=== PATIENT | male | born 1970 ===

== ENCOUNTER 2021-10-02 08:00 | Outpatient (CLI) | payer BC ==
--- NOTE | 2021-10-02 14:23 | XRAY Report ---
PROCEDURE: Finger(s) RT INDICATIONS: DOG BITE 5TH DIGIT RIGHT HAND TECHNIQUE: AP hand, 3 views of the with finger(s) acquired. COMPARISON: None FINDINGS: Bones: Transverse oblique fracture through the base of the fifth distal phalanx noted with volar disp lacement and angulation of the distal fracture fragment. Soft tissues: No suspicious soft tissue calcifications. IMPRESSION: Angulated and displaced fracture, base of the fifth distal phalanx Reviewed by: Dennis Kaur MD on 10/02/2021 1:22 PM SHEA Approved by: Dennis Kaur MD on 10/02/2021 1:22 PM SHEA Station ID: [id number]
== END 2021-10-02 23:59 | disposition home or self-care (01) ==
LOC: DI.S 08:00
PROVIDERS: ATTEND Physician Assistant Medical
DX: S62.616A Displaced fracture of proximal phalanx of right little finger, initial encounter for closed fracture (principal)

== ENCOUNTER 2022-10-10 00:05 | Day surgery (SDC) | payer BC ==
--- OUTSIDE RECORDS SUMMARY | 2022-10-10 00:13 | EXTERNAL MEDICAL SUMMARY RPT | Continuity of Care Document ---
:1970 Author Organization [facility] Address [address] [place] [address] Phone Care Team Providers Name Role Phone Unavailable Unavailable Unavailable Horacio Lane Md Unavailable Unavailable Allergies No information. Encounters No information. Functional Status No information. Immunizations No information. Medications date description facility 2022-10-06 00:00 methocarbamol [facility] Problems date description facility 2022-10-06 00:00 Backache [facility] [place] 2022-10-06 00:00 Strain of thoracic region [facility] [place] 2022-10-06 00:00 Backache, unspecified [facility] [place] 2022-10-06 00:00 Other dorsalgia [facility] [place] 2022-10-06 00:00 Strain of muscle and tendon of [facility] & back wall of thorax, initial [facility] encounter Procedures date description facility 2022-10-06 00:00 Visit Code Hold [facility] 2022-10-06 00:00 POC URINALYSIS DIP [facility] Results/Labs test date author facility value unit interpret ation Result panel 1 (unknown) (no date) (unknown) [facility] (no value) (units ([facility] nown) Clinic [facility] Result panel 2 (unknown) (no date) (unknown) [facility] (no value) (units ([facility] nown) Clinic [facility] Result panel 3 (unknown) (no date) (unknown) [facility] (no value) (units ([facility] nown) Clinic [facility] Result panel 4 (unknown) (no date) (unknown) [facility] (no value) (units ([facility] nown) Clinic [facility] Result panel 5 (unknown) (no date) (unknown) [facility] (no value) (units ([facility] nown) Clinic [facility] Result panel 6 (unknown) (no date) (unknown) [facility] (no value) (units ([facility] nown) Clinic [facility] Result panel 7 (unknown) (no date) (unknown) [facility] (no value) (units ([facility] nown) Clinic [facility] Result panel 8 (unknown) (no date) (unknown) [facility] (no value) (units ([facility] nown) Clinic [facility] Result panel 9 (unknown) (no date) (unknown) [facility] (no value) (units ([facility] nown) Clinic [facility] Result panel 10 (unknown) (no date) (unknown) [facility] (no value) (units ([facility] nown) Clinic [facility] Result panel 11 (unknown) (no date) (unknown) [facility] (no value) (units ([facility] nown) Clinic [facility] Result panel 12 (unknown) (no date) (unknown) Walk[facility] (no value) (units ([facility] nown) Clinic [facility] Result panel 13 (unknown) (no date) (unknown) [facility] (no value) (units ([facility] nown) Clinic [facility] unknown[facility] Result panel 14 (unknown) (no date) (unknown) [facility] (no value) (units ([facility] nown) Clinic [facility] unknown[facility] Result panel 15 (unknown) (no date) (unknown) [facility] (no value) (units ([facility] nown) Clinic [facility] unknown[facility] Result panel 16 (unknown) (no date) (unknown) [facility] (no value) (units ([facility] nown) Clinic [facility] unknown[facility] Result panel 17 (unknown) (no date) (unknown) [facility] (no value) (units ([facility] nown) Clinic [facility] unknown[facility] Result panel 18 (unknown) (no date) (unknown) [facility] (no value) (units ([facility] nown) Clinic [facility] unknown[facility] Result panel 19 (unknown) (no (unknown) [facility] (no (units ( unknown) date) [facility] Result panel 20 (unknown) (no date) (unknown) [facility] (no value) (units ([facility] nown) Clinic [facility] unknown[facility] Result panel 21 (unknown) (no date) (unknown) Walk-In (no value) (units ([facility] nown) Clinic Primary unknown[facility] Result panel 22 (unknown) (no date) (unknown) Walk-In (no value) (units ([facility] nown) Clinic Primary unknown[facility] Result panel 23 (unknown) (no date) (unknown) Walk-In (no value) (units ([facility] nown) Clinic Primary unknown[facility] Result panel 24 (unknown) (no date) (unknown) Walk-In (no value) (units ([facility] nown) Clinic Primary unknown[facility] Social History date description facility 2022-10-06 00:00 Never smoker [facility] Vital Signs date measurement value units 2022-10-06 00:00 BMI 30.96 kg/m2 2022-10-06 00:00 BP_diastolic 84 mmHg 2022-10-06 00:00 BP_systolic 142 mmHg 2022-10-06 00:00 heart_rate 83 /min 2022-10-06 00:00 height_metric 177.8 cm 2022-10-06 00:00 height_standard 70 in 2022-10-06 00:00 respiration_rate 16 /min 2022-10-06 00:00 temperature_metric 37 C 2022-10-06 00:00 temperature_standard 98.6 F 2022-10-06 00:00 weight_metric 97.52 kg 2022-10-06 00:00 weight_standard 215 lb
[2022-10-10] MEDS ORDERED: KETOROLAC 15 MG/ML VIAL IVP STA ×2 (00:28→04:02)
--- NOTE | 2022-10-10 00:28 | ED Physician Documentation ---
History of Present Illness - Stated complaint Stated Complaint: RT ABD/BACK PX/VOMITING - Chief complaint Chief Complaint: Abd Pain - History obtained from History obtained from: Patient - Additonal information Additional information: 51-year-old man, previously healthy, presents with right upper quadrant pain radiating to the back for the past 5 days, waxing and waning in severity, associated with nonbloody nonbilious nausea and vomiting. Pain is cramping in quality and associated with decreased appetite. Patient denies fever or diarrhea but does state that he has been getting the chills. denies cough, soa. PD PAST MEDICAL HISTORY - Present Medications Home Medications: Ambulatory Orders Medication Instructions Recorded Confirmed Aminida 500 mcg PO DAILY 10/10/22 Beyote 500 mg PO DAILY 10/10/22 Levothyroxine Sodium 125 mcg PO DAILY 10/10/22 10/10/22 [Levothyroxine] - Allergies Allergies/Adverse Reactions: Allergies Allergy/AdvReac Type Severity Reaction Status Date / Time codeine Allergy Itching Verified 10/10/22 00:23 PD ED PE NORMAL - Vitals Vital signs reviewed: Yes - General General: Alert and oriented X 3, No acute distress, Well developed/nourished - HEENT HEENT: Atraumatic, PERRL, EOMI - Neck Neck: Supple, no meningeal sign - Cardiac Cardiac: RRR - Respiratory Respiratory: No respiratory distress, Clear bilaterally - Abdomen Abdomen: Other (RUQ ttp. diffuse discomfort to palpation) Results - Vitals Vitals: Vital Signs - 24 hr 10/10/22 10/10/22 10/10/22 00:05 00:19 02:35 Temperature 36.7 C 99.2 C H Heart Rate 80 73 78 Respiratory 20 18 21 Rate Blood Pressure 144/85 H 143/81 H 124/75 O2 Saturation 98 99 97 10/10/22 10/10/22 10/10/22 03:10 03:30 04:02 Temperature Heart Rate 76 79 81 Respiratory 26 H 18 12 Rate Blood Pressure 112/64 95/58 L 123/72 O2 Saturation 97 95 100 10/10/22 10/10/22 05:20 05:58 Temperature 37.7 C Heart Rate 85 86 Respiratory 16 22 Rate Blood Pressure 119/64 118/68 O2 Saturation 96 95 Oxygen O2 Source Room air - Labs Labs: Laboratory Tests 10/10/22 10/10/22 10/10/22 00:16 00:23 00:23 WBC 15.2 H RBC 5.19 Hgb 14.8 Hct 44.1 MCV 85.0 MCH 28.5 MCHC 33.6 RDW 12.3 Plt Count 288 MPV 9.9 Neut # (Auto) 12.7 H Lymph # (Auto) 1.1 L [place] # (Auto) 1.1 H Eos # (Auto) 0.2 Baso # (Auto) 0.1 Absolute Nucleated RBC 0.00 Nucleated RBC % 0.0 Sodium 138 Potassium 2.8 L Chloride 97 L Carbon Dioxide 28 Anion Gap 13.0 BUN 19 Creatinine 1.0 Estimated GFR (MDRD) 78 L Glucose 149 H Calcium 8.5 Total Bilirubin 0.6 AST 35 ALT 40 Alkaline Phosphatase 143 H Total Protein 7.8 Albumin 3.2 Globulin 4.6 H Albumin/Globulin Ratio 0.7 L Lipase 43 Urine Color YELLOW Urine Clarity CLEAR Urine pH 6.0 Ur Specific [place] 1.015 Urine Protein 100 H Urine Glucose (UA) NEGATIVE Urine Ketones NEGATIVE Urine Occult Blood SMALL H Urine Nitrite NEGATIVE Urine Bilirubin NEGATIVE Urine Urobilinogen 2 H Ur Leukocyte Esterase NEGATIVE Urine RBC 0-5 Urine WBC 0-3 Ur Squamous Epith Cells FEW Squamous Urine Bacteria Rare Ur Microscopic Review INDICATED Urine Culture Comments NOT INDICATED SARS-CoV-2 (PCR) 10/10/22 02:32 WBC RBC Hgb Hct MCV MCH MCHC RDW Plt Count MPV Neut # (Auto) Lymph # (Auto) [place] # (Auto) Eos # (Auto) Baso # (Auto) Absolute Nucleated RBC Nucleated RBC % Sodium Potassium Chloride Carbon Dioxide Anion Gap BUN Creatinine Estimated GFR (MDRD) Glucose Calcium Total Bilirubin AST ALT Alkaline Phosphatase Total Protein Albumin Globulin Albumin/Globulin Ratio Lipase Urine Color Urine Clarity Urine pH Ur Specific [place] Urine Protein Urine Glucose (UA) Urine Ketones Urine Occult Blood Urine Nitrite Urine Bilirubin Urine Urobilinogen Ur Leukocyte Esterase Urine RBC Urine WBC Ur Squamous Epith Cells Urine Bacteria Ur Microscopic Review Urine Culture Comments SARS-CoV-2 (PCR) NOT DETECTED PD Medical Decision Making - ED course ED course: 51yM p/w RUQ pain radiating to back. DDX includes gallstones, renal stones, gastroenteritis, pancreatitis, MSK pain, RLL PNA. Will order cbc, abdominal panel, u/a to evaluate further. may obtain ct as needed. IV toradol provided for pain relief with improvement. Patient with leukocytosis with WBC 15 and hypokalemia K 2.8. Oral and IV potassium ordered. acute cholecystitis on CT. Plan to administer IV zosyn, fluids, and d/w surgery for admission. 2am - d/w Dr. Telles. given that the patient has unusual small hypodensities in the liver adjacent to gallbladder concerning for microhepatic abscesses, she is inclined to request ultrasound for further elucidation prior to admission. 2:30am- d/w Dr. Telles who will see the patient during the day today pending u/s. ultrasound gallbladder ordered. we may have a bed available in the morning but if not patient may need transfer. plan to endorse to my daytime ED colleague at 7am shift change. 6:45am - confirmed 4 M/S beds available today. Departure - Departure Clinical Impression: Cholecystitis, Spotting, liver Condition: Serious
[2022-10-10 00:29] LABS: BASOPHILS # (AUTO) 0.1 10^3/uL (0.0-0.1); BASOPHILS % (AUTO) 0.5 %; EOSINOPHILS # (AUTO) 0.2 10^3/uL (0.0-0.7); EOSINOPHILS % (AUTO) 1.4 %; HCT - HEMATOCRIT 44.1 % (42.0-52.0); HGB - HEMOGLOBIN 14.8 g/dL (14.0-18.0); LYMPHOCYTES # (AUTO) 1.1 10^3/uL (1.5-3.5); MEAN CORPUSCULAR HEMOGLOBIN 28.5 pg (27.0-31.0); MEAN CORPUSCULAR HGB CONC 33.6 g/dL (32.0-36.0); MEAN PLATELET VOLUME 9.9 fL (7.4-11.4); MONOCYTES # (AUTO) 1.1 10^3/uL (0.0-1.0); MONOCYTES % (AUTO) 7.3 %; NEUTROPHILS # (AUTO) 12.7 10^3/uL (1.5-6.6); NEUTROPHILS % (AUTO) 83.4 %; PLT - PLATELET COUNT 288 10^3/uL (130-450); RED BLOOD COUNT 5.19 10^6/uL (4.70-6.10); RED CELL DISTRIBUTION WIDTH 12.3 % (12.0-15.0); WHITE BLOOD COUNT 15.2 x10^3/uL (4.8-10.8)
[2022-10-10 00:31] LABS: CLARITY,URINE CLEAR (CLEAR); GLUCOSE, URINE (UA) NEGATIVE (NEGATIVE); KETONES,URINE (UA) NEGATIVE (NEGATIVE); LEUKOCYTE ESTERASE, URINE NEGATIVE (NEGATIVE); NITRITE,URINE NEGATIVE (NEGATIVE); OCCULT BLOOD,URINE SMALL (NEGATIVE); PROTEIN,URINE 100 mg/dL (NEGATIVE); UROBILINOGEN,URINE 2 E.U./dL (NORMAL)
[2022-10-10 00:35] LABS: BILIRUBIN,URINE NEGATIVE (NEGATIVE); ICTOTEST,URINE NEGATIVE
[2022-10-10 00:42] LABS: ALBUMIN 3.2 g/dL (3.2-5.5); ALBUMIN/GLOBULIN RATIO 0.7 (1.0-2.2); BILIRUBIN,TOTAL 0.6 mg/dL (0.2-1.0); CALCIUM 8.5 mg/dL (8.5-10.3); POTASSIUM 2.8 mmol/L (3.5-5.0); TOTAL PROTEIN 7.8 g/dL (6.7-8.2)
[2022-10-10 00:44] LABS: BACTERIA,URINE Rare /HPF (None Seen); RBC,URINE 0-5 /HPF (0-5); SQUAMOUS EPITHELIAL CELL,UR FEW Squamous (<= Few); WBC,URINE 0-3 /HPF (0-3)
[2022-10-10] MEDS ORDERED: POTASSIUM CHLORIDE 20 MEQ TABLET PO STA (00:56)
[2022-10-10] MEDS ORDERED: POTASSIUM CHLOR 10 MEQ/100 ML 10 MEQ/100 ML BAG IV STA (00:56)
[2022-10-10] MEDS ORDERED: SODIUM CHLORIDE 0.9% 1,000 ML IV STA ×2 (00:56→01:51)
[2022-10-10] MEDS ORDERED: iohexoL-300 100 ML VIAL ONE (01:04)
[2022-10-10] MEDS ORDERED: iohexoL-300 100 ML VIAL IVP ONE (01:32)
[2022-10-10] MEDS ORDERED: PIPERACILLIN/TAZOBACTAM 3.375 GM in SODIUM CHLORIDE 0.9% MINIBAG 100 ML IV STA (01:49)
--- NOTE | 2022-10-10 01:52 | CT Report ---
PROCEDURE: ABDOMEN/PELVIS W INDICATIONS: RUQ pain radiating to back. +Hematuria CONTRAST: 100 ml omni 300 TECHNIQUE: After the administration of oral and intravenous contrast, 5 mm thick sections acquired from the diap hragms to the symphysis. 5 mm thick coronal and sagittal reformats were acquired. For radiation dos e reduction, the following was used: automated exposure control, adjustment of mA and/or kV accordin g to patient size. COMPARISON: None. FINDINGS: Image quality: Excellent. Lung bases and heart: Right basilar atelectasis. No pleural effusion. Mild coronary artery calcificat ions. Liver: Hypodensity is adjacent to the gallbladder. Small amount of fluid underneath the left lobe of the liver measuring 5.4 x 2.8 x 2.6 cm, estimated volume of 20 cc. Gallbladder and biliary tree: Distended. Pericholecystic fluid and inflammatory change. Spleen: Unremarkable. Pancreas: Within normal limits. No peripancreatic fluid collection. Adrenals: No nodule. Kidneys and ureters: No hydronephrosis. Bowel and peritoneum: Stomach is not significantly distended. Stranding adjacent to the proximal duod enum. No small bowel obstruction. Diverticulosis. Stranding and thickening adjacent to the hepatic fl exure. The appendix is not dilated. There is trace right pericolic gutter fluid. Lymph nodes: Shotty periportal lymph nodes. Vessels: No aneurysm. Mild plaque. PELVIS Reproductive organs: Unremarkable. Bladder: Not distended. Lymph nodes: Unremarkable. Bones: No aggressive osseous abnormality. DDD most pronounced at L4-L5. Other: Trace free fluid in the pelvis. IMPRESSION: 1. Gallbladder is distended. Trace pericholecystic fluid and inflammatory change. Findings most payton rning for acute cholecystitis. Duodenitis is also a diagnostic consideration. 2. Small amount of fluid underneath the left lobe liver. No pneumoperitoneum. 3. Suspect reactive inflammatory change at the duodenum and hepatic flexure colon. 4. Small hypodensities in the liver adjacent to the gallbladder. These could represent microhepatic a bscesses. Focal fatty infiltration could have a similar appearance. Ultrasound or MRI would be helpfu l for further evaluation. 5. No hydronephrosis. Results were communicated to Dr. Flowers at 10/10/2022 1:50 AM PDT. Reviewed by: Reggie Pinon MD on 10/10/2022 1:50 AM PDT Approved by: Reggie Pinon MD on 10/10/2022 1:50 AM PDT Station ID: [id number]
[2022-10-10] MEDS: MORPHINE 2 MG/ML CARPUJECT IVP PRN ×2 (05:23→09:35)
[2022-10-10 07:23] LABS: BASOPHILS # (AUTO) 0.1 10^3/uL (0.0-0.1); BASOPHILS % (AUTO) 0.5 %; EOSINOPHILS # (AUTO) 0.1 10^3/uL (0.0-0.7); EOSINOPHILS % (AUTO) 0.5 %; HCT - HEMATOCRIT 41.7 % (42.0-52.0); HGB - HEMOGLOBIN 13.9 g/dL (14.0-18.0); LYMPHOCYTES # (AUTO) 0.5 10^3/uL (1.5-3.5); LYMPHOCYTES % (AUTO) 3.6 %; MEAN CORPUSCULAR HEMOGLOBIN 28.5 pg (27.0-31.0); MEAN CORPUSCULAR HGB CONC 33.3 g/dL (32.0-36.0); MEAN CORPUSCULAR VOLUME 85.5 fL (80.0-94.0); MEAN PLATELET VOLUME 9.7 fL (7.4-11.4); MONOCYTES # (AUTO) 0.5 10^3/uL (0.0-1.0); MONOCYTES % (AUTO) 3.7 %; NEUTROPHILS # (AUTO) 12.9 10^3/uL (1.5-6.6); NEUTROPHILS % (AUTO) 91.1 %; PLT - PLATELET COUNT 262 10^3/uL (130-450); RED BLOOD COUNT 4.88 10^6/uL (4.70-6.10); RED CELL DISTRIBUTION WIDTH 12.4 % (12.0-15.0); WHITE BLOOD COUNT 14.1 x10^3/uL (4.8-10.8)
[2022-10-10 07:25] LABS: ALBUMIN 2.7 g/dL (3.2-5.5); ALBUMIN/GLOBULIN RATIO 0.7 (1.0-2.2); BILIRUBIN,TOTAL 0.7 mg/dL (0.2-1.0); CALCIUM 7.7 mg/dL (8.5-10.3); CREATININE 0.9 mg/dL (0.6-1.2); POTASSIUM 3.9 mmol/L (3.5-5.0); TOTAL PROTEIN 6.8 g/dL (6.7-8.2)
--- NOTE | 2022-10-10 08:18 | Ultrasound Report ---
PROCEDURE: Abdomen Limited INDICATIONS: gallbladder ultrasound-edemav.microhepatic abscess TECHNIQUE: Real-time focused scanning was performed of the abdomen, with image documentation. COMPARISONS: CT of abdomen and pelvis from the same day.. FINDINGS: Liver: Liver is enlarged in size and measures 21.9 cm in length. Diffusely increased liver parenchym al echotexture is seen. No discrete hepatic lesion is noted. Gallbladder: Sludge material within dependent portion of gallbladder lumen is seen. Gallbladder wall thickening is seen measures 5 mm in thickness. There is pericholecystic fluid and sonographic Simpson' s sign. There is well-defined fluid collection adjacent to gallbladder measuring 4.5 x 1.6 x 3.4 cm i n size. Biliary ducts: Intrahepatic bile ducts are non-dilated. Extrahepatic bile duct caliber measures 4.8 mm. Normal is 6-7 mm or less in diameter, or 10 mm or less post-cholecystectomy. Pancreas: Visualized portions of the pancreas are sonographically normal. Right kidney: Normal in size and echotexture. Right kidney measures 13 cm long. No hydronephrosis or nephrolithiasis. No solid masses. No complex renal cystic lesions which require follow-up. IMPRESSION: 1. Finding is suggestive of acute cholecystitis. Small amount of perihepatic and pericholecystic flui d is seen. Well-defined fluid collection at gallbladder fossa measures 4.5 x 1.6 x 3.4 cm in size whi ch could represent an abscess collection versus biloma. 2. No biliary ductal dilatation. Hepatomegaly and hepatic steatosis. No significant discrepancies from preliminary reading. Reviewed by: Keo Otoole MD on 10/10/2022 8:16 AM PDT Approved by: Keo Otoole MD on 10/10/2022 8:16 AM PDT Station ID: [id number]
[2022-10-10] MEDS: PIPERACILLIN/TAZOBACTAM 3.375 GM in SODIUM CHLORIDE 0.9% MINIBAG 100 ML IV SCH ×2 (08:51→16:27)
[2022-10-10] MEDS ORDERED: LACTATED RINGERS 1,000 ML IV STA (10:20)
[2022-10-10] MEDS ORDERED: HYDROmorphone 1 MG/ML CARPUJECT IVP STA (11:29)
--- NOTE | 2022-10-10 11:31 | ED Physician Documentation ---
ED Addendum - Addendum Addendum: 10/10/22 11:29 The patient had the ultrasound completed which was read by the radiology and show cholecystitis with adjacent fluid collection concerning for bili L[place] versus abscess. No other obvious acute abnormality. Dr. Malagon came and saw the patient again with that report and felt he was appropriate for our facility for cholecystectomy. The patient was maintained n.p.o. He was given IV fluids for hydration. He did request pain medicine and given Dilaudid 1 mg IV. The patient will be going to the OR for cholecystectomy in stable condition. Disposition: Transfer to same-day surgery Diagnoses: 1. Upper abdominal pain 2. Acute cholecystitis
[2022-10-10] MEDS ORDERED: LACTATED RINGERS 1,000 ML IV ONE ×2 (11:34→15:21)
[2022-10-10] MEDS ORDERED: MORPHINE 2 MG/ML CARPUJECT IVP PRN ×2 (11:42→11:59)
[2022-10-10] MEDS ORDERED: ceFAZolin 2 GM in SODIUM CHLORIDE 0.9% 100ML 100 ML IV STA (11:42)
[2022-10-10] MEDS ORDERED: ONDANSETRON 4 MG/2 ML VIAL IVP PRN ×3 (11:42→15:23)
[2022-10-10] MEDS ORDERED: CEFAZOLIN 2G/50ML 0.9% NS 2 GM/50 ML BAG IV ONE (11:44)
[2022-10-10] MEDS ORDERED: metroNIDAZOLE 500 MG/100 ML 500 MG/100 ML BAG ONE (11:45)
--- NOTE | 2022-10-10 11:50 | SURGERY HX AND PHYSICAL(T) ---
Surgical History & Physical - Chief Complaint/HPI Chief Complaint: abdominal pain History of Present Illness: This is a very pleasant 51-year-old gentleman. He went on vacation with his family to [place] about a week ago. He states he spent a lot of time in a hot tub while he was there. On return home, last Monday, the patient started having back pain. He went to an outpatient clinic and was given a muscle relaxer. On Monday of last week, the patient began having right upper quadrant abdominal pain that is sharp and constant in nature. He does note some radiation of the pain to his back. His pain is made worse with eating. Starting on , the patient began having episodes of nausea and nonbilious, nonbloody vomiting. He also has felt chilled at times, but has not been running a fever when his temperature was checked. He has never had pain like this in the past, but does endorse that he has had some right upper quadrant pain after particularly rich meals for the last couple of years, never lasting for more than an hour or 2.He denies any chest pain, shortness of breath, constipation, or diarrhea. - PMH/PSH/Social Hx Does the pt have a hx of MRSA?: No Neurological History: None Eyes, Ears, Nose, Throat: None Cardiovascular: None Respiratory: None Skin: None Endocrine/Autoimmune: HyPOthyroidism Gastrointestinal: None, Other AUTOBODY TECHNICIAN: None Urinary: None Musculoskeletal: None Blood Disorders: None Psychiatric: None (Right inguinal hernia repair) PMH Other: R inguinal Hernia General: Other Orthopedic: Other (Right knee meniscus) Smoking Status: Current every day smoker (Vapes, uses 1 cartridge every 1 to 2 days) Does the pt drink ETOH?: No Does the pt have substance abuse?: No Substance Use and Type: Other (Microdoses amanita mushrooms and peyote) - Family Hx Family Hx: Unremarkable - Home Meds and Allergies Home Medications: Aminida 500 mcg PO DAILY 10/10/22 Beyote 500 mg PO DAILY 10/10/22 Levothyroxine Sodium [Levothyroxine] 125 mcg PO DAILY 10/10/22 Allergies/Adverse Reactions: Allergies Allergy/AdvReac Type Severity Reaction Status Date / Time codeine Allergy Itching Verified 10/10/22 00:23 - Review of Systems Constitutional: Other (A complete 10 point review of symptoms is otherwise negative except for that noted in HPI and PMH.) - Vital Signs Heart Rate: 89 Blood Pressure: 129/73 Temperature: 36.8 C Respiratory Rate: 30 O2 Saturation: 95 Weight (kg): 86.183 kg Height: 1.78 m - Physical Exam General Appearance: positive: No acute distress, Alert Eyes Bilatera: positive: Normal inspection, PERRL, EOMI ENT: positive: No signs of dehydration Neck: positive: Trachea midline Respiratory: positive: No respiratory distress, Breath sounds nml Cardiovascular: positive: Regular rate & rhythm Peripheral Pulses: positive: 2+ Abdomen: positive: Tenderness (Right upper quadrant, exquisite), Guarding (Involuntary in right upper quadrant). negative: No distention, Rebound Back: positive: Nml inspection Skin: positive: Color nml Extremities: positive: Non-tender, Full ROM, Nml appearance Neurologic/Psychiatric: positive: Oriented x3 Comments/Other: CT performed on 10/10/2022 demonstrates gallbladder distention and pericholecystic fluid concerning for acute cholecystitis. There is no pneumoperitoneum. There is also a small hypodensity in the liver adjacent to the gallbladder which is felt to represent micro hepatic abscess versus focal fatty infiltration. Ultrasound performed on 10/10/2022 is consistent with acute cholecystitis with pericholecystic fluid and gallbladder sludge. There is no biliary ductal dilation. There is a well-defined fluid collection in the gallbladder fossa measuring 4.5 x 1.6 x 3.4 cm which is felt to represent an abscess versus biloma versus inflammatory fluid I personally reviewed the images and reports from the above studies. It appears the patient has acute cholecystitis. The adjacent fluid collection may be inflammatory fluid versus an abscess versus biloma. - Patient Review Patient Review: Problems were reviewed with the patient during this visit. Medications were reviewed with the patient during this visit. Allergies were reviewed this patient during this visit. Pertinent Tests Reviewed: All pertitent test for this patient were reviewed. - Assessment & Plan Assessment and Plan: This is a 51-year-old gentleman with: 1. Acute cholecystitis. The patient's laboratory studies, physical exam, and history are consistent with this diagnosis. He appears to have acute calculus cholecystitis with biliary sludge. He has extensive inflammatory changes surrounding his gallbladder. I discussed the natural history of gallstones/sludge, cholecystitis, and the intraoperative and postoperative plan with the patient. We discussed the risks, benefits, and alternatives of a laparoscopic cholecystectomy with cholangiogram and possible need for an open procedure. Risks include but are not limited to bleeding, infection, damage to surrounding structures, common bile duct injury, need for an open procedure, need for drain placement, and the need for further surgeries or procedures in the future. The patient voiced understanding, his questions were answered, and he wished to proceed. He expressed gratitude for the thorough explanation of his disease process and the plan of care. He wished to proceed with cholecystectomy today. A consent was signed by the patient. Preoperative antibiotics and ERAS protocol has been ordered Patient has been n.p.o. since arrival. Plan to advance his diet after surgery. Plan for likely discharge home after surgery, unless he requires an open procedure which would likely require postoperative inpatient stay. A bed is available. The patient will need to follow-up with me in 2 weeks 2. Hypothyroidism I will continue the patient's home medications on discharge 3. Tobaccoism I encouraged the patient to stop using tobacco products. The patient also reports he microdoses amanita and peyote. Patient's NOK: , [place] [phone]
[2022-10-10] MEDS ORDERED: MIDAZOLAM 2 MG/2 ML VIAL ONE (11:57)
[2022-10-10] MEDS ORDERED: PROPOFOL 200 MG/20 ML VIAL IVP ONE (11:58)
[2022-10-10] MEDS ORDERED: LIDOCAINE-PF 2% 10 ML AMP SUBQ ONE (11:58)
[2022-10-10] MEDS ORDERED: ROCURONIUM 50 MG/5 ML VIAL ONE ×2 (11:58→13:18)
[2022-10-10] MEDS ORDERED: fentaNYL 100 MCG/2 ML VIAL ONE ×2 (11:58→13:43)
[2022-10-10] MEDS ORDERED: NALOXONE 0.4 MG/ML VIAL IVP PRN (11:59)
[2022-10-10] MEDS ORDERED: fentaNYL 100 MCG/2 ML VIAL IVP PRN (11:59)
[2022-10-10] MEDS ORDERED: ATROPINE ABBOJECT 1 MG/10 ML SYRINGE IVP PRN (11:59)
[2022-10-10] MEDS ORDERED: METOCLOPRAMIDE 10 MG/2 ML VIAL IVP PRN (11:59)
[2022-10-10] MEDS ORDERED: HYDROmorphone 0.5 MG/0.5 ML SYRINGE IVP PRN (11:59)
[2022-10-10] MEDS ORDERED: ePHEDrine 50 MG/ML VIAL IVP PRN (11:59)
--- NOTE | 2022-10-10 11:59 | ANESTHESIA ---
Pre-Anesthesia VS, & Labs - Diagnosis cholecystitis - Procedure lap osiris Vital Signs: Temp Pulse Resp BP Pulse Ox O2 Flow Rate 36.8 C 89 30 H 129/73 95 10/10/22 11:56 10/10/22 11:56 10/10/22 11:56 10/10/22 11:56 10/10/22 11:56 Height: 5 ft 10 in Weight (kg): 86.183 kg Body Mass Index: 27.2 BMI Classification: Overweight - NPO >8 hours - Lab Results Current Lab Results: Laboratory Tests 10/10/22 07:07: Sodium 138, Potassium 3.9, Chloride 103, Carbon Dioxide 26, Anion Gap 9.0, BUN 18, Creatinine 0.9, Estimated GFR (MDRD) 88 L, Glucose 113 H, Calcium 7.7 L, Total Bilirubin 0.7, AST 27, ALT 32, Alkaline Phosphatase 131 H, Total Protein 6.8, Albumin 2.7 L, Globulin 4.1, Albumin/Globulin Ratio 0.7 L, Lipase 34 10/10/22 07:07: WBC 14.1 H, RBC 4.88, Hgb 13.9 L, Hct 41.7 L, MCV 85.5, MCH 28.5, MCHC 33.3, RDW 12.4, Plt Count 262, MPV 9.7, Neut # (Auto) 12.9 H, Lymph # (Auto) 0.5 L, [place] # (Auto) 0.5, Eos # (Auto) 0.1, Baso # (Auto) 0.1, Absolute Nucleated RBC 0.00, Nucleated RBC % 0.0 10/10/22 00:23: Sodium 138, Potassium 2.8 L, Chloride 97 L, Carbon Dioxide 28, Anion Gap 13.0, BUN 19, Creatinine 1.0, Estimated GFR (MDRD) 78 L, Glucose 149 H , Calcium 8.5, Total Bilirubin 0.6, AST 35, ALT 40, Alkaline Phosphatase 143 H, Total Protein 7.8, Albumin 3.2, Globulin 4.6 H, Albumin/Globulin Ratio 0.7 L, Lipase 43 10/10/22 00:23: WBC 15.2 H, RBC 5.19, Hgb 14.8, Hct 44.1, MCV 85.0, MCH 28.5, MCHC 33.6, RDW 12.3, Plt Count 288, MPV 9.9, Neut # (Auto) 12.7 H, Lymph # (Auto) 1.1 L, [place] # (Auto) 1.1 H, Eos # (Auto) 0.2, Baso # (Auto) 0.1, Absolute Nucleated RBC 0.00, Nucleated RBC % 0.0 Fish Bones: 10/10/22 07:07 10/10/22 07:07 Home Medications and Allergies Home Medications: Ambulatory Orders Aminida 500 mcg PO DAILY 10/10/22 Beyote 500 mg PO DAILY 10/10/22 Levothyroxine Sodium [Levothyroxine] 125 mcg PO DAILY 10/10/22 Active Medications Acetaminophen (Acetaminophen 325 Mg Tablet) 1,000 mg PO ONCE ONE Stop: 10/10/22 12:01 Acetazolamide (Acetazolamide 250 Mg Tablet) 250 mg PO DAILY CHE Gabapentin (Gabapentin 300 Mg Capsule) 300 mg PO ONCE ONE Stop: 10/10/22 12:01 Piperacillin Sod/Tazobactam (Sod 3.375 gm/ Sodium Chloride) 100 mls @ 200 mls/hr IV Q6H [facility] Last Infusion: 10/10/22 09:35 Dose: Infused Lactated Ringer's (Lr) 1,000 mls @ 250 mls/hr IV .Q4H STA Stop: 10/10/22 14:19 Last Admin: 10/10/22 10:33 Dose: 250 mls/hr Sodium Chloride (Normal Saline 0.9%) 1,000 mls @ 125 mls/hr IV .Q8H CHE Cefazolin Sodium 2 gm/ Sodium (Chloride) 100 mls @ 200 mls/hr IV ONCE STA Stop: 10/10/22 12:11 Metronidazole (Flagyl 500 Mg/100 Ml) 500 mg in 100 mls @ 100 mls/hr IV ONCE ONE Stop: 10/10/22 12:59 Morphine Sulfate (Morphine 2 Mg/Ml Carpuject) 4 mg IVP Q4H PRN PRN Reason: PAIN 5-7 Last Admin: 10/10/22 09:35 Dose: 4 mg Morphine Sulfate (Morphine 2 Mg/Ml Carpuject) 4 mg IVP Q2HR PRN PRN Reason: PAIN >8 Ondansetron HCl (Ondansetron 4 Mg/2 Ml Vial) 4 mg IVP Q6HR PRN PRN Reason: Nausea / Vomiting Aminida 500 mcg PO DAILY 10/10/22 Beyote 500 mg PO DAILY 10/10/22 Levothyroxine Sodium [Levothyroxine] 125 mcg PO DAILY 10/10/22 Allergies/Adverse Reactions: Allergies Allergy/AdvReac Type Severity Reaction Status Date / Time codeine Allergy Itching Verified 10/10/22 00:23 Anes History & Medical History - Anesthetic History Anesthesia Complications: reports: No previous complications Family history of Anesthesia Complications: Denies Family history of Malignant Hyperthermia: Denies - Medical History Cardiovascular: reports: None Pulmonary: reports: None Gastrointestinal: reports: None, Other Urinary: reports: None Neuro: reports: None Musculoskeletal: reports: None Endocrine/Autoimmune: reports: HyPOthyroidism Blood Disorders: reports: None Skin: reports: None Smoking Status: Current every day smoker (Vapes, uses 1 cartridge every 1 to 2 days) Psychosocial: reports: Hallucinogen, Psychoactive Drug (mushrooms and peyote) History of Cancer?: No Other Past Medical History: R inguinal Hernia - Surgical History General: reports: Other Orthopedic: reports: Other (Right knee meniscus) Exam General: Alert, Oriented x3, Cooperative Dental: WNL Mouth Openin Fingerbreadth Neck Mobility: Normal Mallampati classification: I Thyromental Distance: 4-6 cm Respiratory: Lungs clear Cardiovascular: Regular rate Plan Anesthesia Type: General Consent for Procedure(s) Verified and Reviewed: Yes Code Status: Attempt Resuscitation ASA classification: 2-Mild systemic disease Is this case an emergency?: No
[2022-10-10] MEDS ORDERED: metroNIDAZOLE 500 MG/100 ML 500 MG/100 ML BAG IV ONE (12:00)
[2022-10-10] MEDS ORDERED: LACTATED RINGERS 1,000 ML IV SCH (12:00)
[2022-10-10] MEDS ORDERED: ACETAMINOPHEN 325 MG TABLET PO ONE (12:00)
[2022-10-10] MEDS ORDERED: SODIUM CHLORIDE 0.9% 1,000 ML IV SCH (12:00)
[2022-10-10] MEDS ORDERED: GABAPENTIN 300 MG CAPSULE PO ONE (12:00)
[2022-10-10] MEDS ORDERED: LIDOCAINE MPF 2%-EPI 1:200000 20 ML VIAL ONE (12:10)
[2022-10-10] MEDS ORDERED: BUPIVACAINE 0.5% PF 30 ML VIAL ONE (12:11)
[2022-10-10] MEDS ORDERED: iohexoL-240 10 ML VIAL IVP ONE ×2 (12:12)
[2022-10-10] MEDS ORDERED: ONDANSETRON 4 MG/2 ML VIAL ONE (12:51)
[2022-10-10] MEDS ORDERED: DEXAMETHASONE 4 MG/ML VIAL ONE (12:51)
[2022-10-10] MEDS ORDERED: LIDOCAINE 2%-EPI 1:100000 20 ML MDV SUBQ ONE (13:12)
[2022-10-10] MEDS ORDERED: BUPIVACAINE 0.5% PF 30 ML VIAL INFIL ONE (13:13)
[2022-10-10] MEDS ORDERED: SUGAMMADEX 200 MG/2 ML VIAL IVP ONE (14:20)
--- NOTE | 2022-10-10 15:37 | OPERATIVE REPORT ---
Operative Report - General Procedure Date: 10/10/22 Planned Procedure: laparoscopic cholecystectomy with cholangiogram, possible open Pre-Op Diagnosis: acute cholecystitis Procedure Performed: laparoscopic cholecystectomy with cholangiogram Post Op Diagnosis: acute gangrenous cholecystitis with perforation - Procedure Note Primary Surgeon: Dr. Gricelda Telles Anesthesia Provider: Pancho Paniagua CRNA Anesthesia Technique: General ET tube, Local Pathology: 1. gallbladder and contents 2. hepatic abscess culture (aerobic and anaerobic) Estimated Blood Loss (mL): 30 Drain/Tube Type: Jakob Betancourt round drain Indications: The patient presented with 5 days of abdominal pain which acutely worsened earlier today. His CT, ultrasound, and labs are consistent with acute cholecystitis. The patient was seen and evaluated in the emergency room. We discussed the risks, benefits, and alternatives of laparoscopic cholecystectomy with cholangiogram, possible open procedure. Risks include but are not limited to bleeding, infection, damage to the surrounding structures, and the need for further surgeries or procedures. The patient voiced understanding, his questions were answered, and he wished to proceed with surgery. A consent was signed by the patient in the emergency department. Findings: 1. Bilious ascites 2. Perforated, gangrenous cholecystitis 3. Normal cholangiogram Complications: None - Other Other Information/Narrative: The patient was brought to the operative suite and placed in the supine position. General endotracheal anesthesia was induced. Preoperative antibiotics were given. ERAS protocol was followed. A preop surgical timeout was performed. Local anesthetic was injected into the skin and subcutaneous tissues just inferior to the umbilicus. An 11 blade scalpel was used to make a 5 mm transverse skin incision in this location. Next, a hemostat was used to spread the tissues down to the level of the fascia and a Brian clamp was used to grasp and elevate the umbilical stalk. A Varess needle was used to gain access to the peritoneal space. Low flow insufflation revealed low pressures and then high flow insufflation was undertaken to 15 mmHg. Next, the Varess needle was removed and a 5 mm laparoscopic port was inserted in this location. Through this port, a 5 mm 30 degree laparoscope was inserted. On inspection of the abdomen no injury was caused on entry. Next, the patient was placed in reverse Trendelenburg and rotated slightly to the left. Two 5 mm ports were inserted in the right upper quadrant, one in the anterior axillary line and the other in the midclavicular line. Also, a 12 mm port was inserted in the subxiphoid region. All ports were placed by first anesthetizing the skin and subcutaneous tissues with local anesthetic, then by making an appropriate length incision with an 11 blade scalpel, and finally by placing the port under direct laparoscopic vision. Once the ports were in place, the right upper quadrant was inspected. There were loose adhesions between the omentum and the anterior abdominal wall. There was bilious ascites throughout the abdomen, most notably above the liver. Also, the colon and omentum were adherent to the gallbladder. Gentle dissect with an atraumatic grasper was used to expose the gallbladder. Then, a ratcheted, atraumatic grasper was used to elevate the fundus of the gallbladder toward the patient's right shoulder. The gallbladder was noted to have several focal areas of necrosis and cloudy, bilious fluid was pouring out of the gallbladder as it was exposed. The remaining adhesions between the gallbladder and other intra- abdominal contents were again taken down with careful, gentle dissection. Next, the peritoneum was incised starting at the hilum of the gallbladder and working toward the fundus along the gallbladder liver interface on the medial and lateral aspects of the gallbladder. Next, attention was returned to the hilum of the gallbladder. The alveolar tissues in this region were taken down with blunt and sharp dissection with electrocautery taking great care not to cauterize though any tissue I could not easily see through. There was woody edema in this area and the dissection was difficult. An atraumatic grasper, and laparoscopic Kitner were used to identify to ductal structures. The Two ductal structures were isolated and skeletonized such that each ductal structure could be visualized with liver present on either side. The cystic plate was also developed. At this time, it was felt that a critical view of safety had been obtained. Next, a clip was placed distally, that is toward the gallbladder, on the cystic duct and just proximal to this a ductotomy was performed. A cholangiogram ca theter was placed within the duct and it was flushed with saline. There was no leakage and it flushed easily. Clips were also placed proximally and distally on the cystic artery. Full strength Isovue dye was then placed on the cholangiogram catheter and a cholangiogram was performed. The cholangiogram appeared normal. There was good filling of the right and left hepatic system as well as the duode num and common bile duct. There were no filling defects. Next the cholangiogram catheter was removed. Two clips were placed proximally on the cystic duct. The cystic duct and cystic artery were divided using laparoscopic scissors between the clips. Next the gallbladder was dissected off of the liver bed. This dissection was difficult due to the amount of necrosis of the gallbladder. About [facility] down the gallbladder, and a hepatic abscess was encountered in the gallbladder fossa. Frankly purulent fluid, and the amount of 15 mL poured out of this abscess. It was cultured with anaerobic and aerobic cultures. Once it was completely freed, the gallbladder was placed in an Endo Catch bag and removed through the epigastric port. The epigastric port was replaced and suction and irrigation were used to remove any fluid from the right upper quadrant. This was done until the fluid returned was clear, which required more than 2 L of warm normal saline. Additional irrigation was also undertaken in the pelvis as there was cloudy, bilious fluid throughout the abdomen. While manipulating the patient's position, moving from reverse trendelenberg to flat, the patient's endotraceal tube began making noise. It was determined that the cuff was not function and the ET tube was replaced by anesthesia. The patient's sats remained in the 97- 98% range throughout this time. Next, a laparoscopic fascial closure device was used to place 2 interrupted 0 Vicryl sutures at the epigastric port. This reapproximated the fascia well. The remaining ports were removed under direct laparoscopic vision and the abdomen was deflated. The epigastric port was inspected and the fascia was not well reapproximated externally so an additional [id number] 0 Vicryl suture was placed. Next, the skin edges were reapproximated with 4-0 Monocryl in an interrupted subcuticular fashion. A sterile dressing of skin glue was placed. The patient tolerated the procedure well. The patient was extubated in the operating room and transferred to the recovery room in stable condition. There were no complications.
[2022-10-10] MEDS: acetaZOLAMIDE 250 MG TABLET PO SCH (16:31)
--- NOTE | 2022-10-10 17:16 | ANESTHESIA POST OP EVALUATION ---
Anesthesia Post Eval - Post Anesthesia Eval Vitals: Last Vital Signs Temp 36.4 C L 10/10/22 16:00 Pulse 80 10/10/22 16:00 Resp 14 10/10/22 16:00 BP 129/72 10/10/22 16:00 Pulse Ox 99 10/10/22 16:00 O2 Flow Rate CV Function Including HR & BP: Stable Pain Control: Satisfactory Nausea & Vomiting: Negative Mental Status: Baseline Respiratory Status: Airway Patent Hydration Status: Satisfactory Anesthesia Complications: None
[2022-10-10] MEDS: oxyCODONE 5 MG TABLET PO PRN ×2 (17:39→22:04)
[2022-10-10] MEDS: LACTATED RINGERS 1,000 ML IV SCH (17:39)
[2022-10-10] MEDS: IBUPROFEN 600 MG TABLET PO PRN (19:50)
[2022-10-10] MEDS: ACETAMINOPHEN 325 MG TABLET PO PRN (19:50)
--- NOTE | 2022-10-10 20:54 | XRAY Report ---
PROCEDURE: OR C-Arm Procedure INDICATIONS: Laparoscopic Cholecystectomy with IOC FLUORO TIME: 0.3 min TECHNIQUE: Intraoperative cholangiogram postcholecystectomy. COMPARISON: CT abdomen and pelvis 10/10/2022.. FINDINGS: Contrast is seen transversing through the cystic duct and common bile duct. There is reflux of contra st in the common hepatic duct. No filling defect is seen. The bile ducts are within normal limits in caliber. Contrast flows into the duodenum. IMPRESSION: No CBD filling defect demonstrated. Reviewed by: Reggie Pinon MD on 10/10/2022 8:52 PM PDT Approved by: Reggie Pinon MD on 10/10/2022 8:52 PM PDT Station ID: [id number]
[2022-10-10] MEDS: AMOX/CLAV 875 MG/125 MG TABLET PO SCH (22:05)
[2022-10-11] MEDS: LACTATED RINGERS 1,000 ML IV SCH (00:35)
[2022-10-11] MEDS: oxyCODONE 5 MG TABLET PO PRN (02:18)
[2022-10-11] MEDS: ACETAMINOPHEN 325 MG TABLET PO PRN (02:18)
[2022-10-11] MEDS: IBUPROFEN 600 MG TABLET PO PRN (06:26)
[2022-10-11] MEDS: AMOX/CLAV 875 MG/125 MG TABLET PO SCH (08:11)
[2022-10-11] MEDS: acetaZOLAMIDE 250 MG TABLET PO SCH ×2 (08:13→08:15)
[2022-10-11] MEDS ORDERED: LEVOTHYROXINE 125 MCG TABLET PO SCH (09:00)
[2022-10-11 09:47] VITALS: BP 111/59
== END 2022-10-11 11:40 | disposition home or self-care (01) ==
LOC: ED 00:05 → SDS 10:32 → MS3 15:50 → SDS 10-11 11:40
PROVIDERS: ATTEND Surgery
PROC: 0FT44ZZ Resection of Gallbladder, Percutaneous Endoscopic Approach (ICD-10-PCS; principal; 2022-10-10 11:30)
DX: K81.0 Acute cholecystitis (principal); K82.A2 Perforation of gallbladder in cholecystitis; K82.A1 Gangrene of gallbladder in cholecystitis; K75.0 Abscess of liver; R18.8 Other ascites; Z20.822 Contact with and (suspected) exposure to COVID-19; E87.6 Hypokalemia; E03.9 Hypothyroidism, unspecified; F17.290 Nicotine dependence, other tobacco product, uncomplicated
CPT/HCPCS: 36415; 47563; 74177; 76705; 80053; 81001; 83690; 85025; 87040; 87635; 96365; 96375; 96376; 99284; 99285; A9270; C1758; J0690; J1170; J7120; Q9966; Q9967; 81003; 87086

== ENCOUNTER 2023-07-10 17:31 | Emergency (ER) | payer OTHER, BC ==
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
[2023-07-10 19:24] VITALS: BP 134/76; O2SAT 100
== END 2023-07-10 19:00 | disposition home or self-care (01) ==
LOC: ED 17:31
DX: S16.1XXA Strain of muscle, fascia and tendon at neck level, initial encounter (principal); V49.40XA Driver injured in collision with unspecified motor vehicles in traffic accident, initial encounter; Y99.0 Civilian activity done for income or pay; F17.290 Nicotine dependence, other tobacco product, uncomplicated
CPT/HCPCS: 1040M; 99282; 99283